=== PATIENT | male | born 1960 | race Caucasian/White ===

== ENCOUNTER → 2022-09-11 | Outpatient (CLI) | payer MEDICARE, MEDICAID ==
[~2022-09-11] VITALS: Ht 182.9 cm; Wt 108.0 kg
[~2022-09-11] MED LIST: CYMBALTA 60MG60 MG PO; MS CONTIN 660 MG/TAB PO; NEURONTIN600 MG/TAB PO; PERCOCET 325 MG1 TAB PO; TENORMIN 5050 MG/TAB PO; ZESTRIL40 MG PO
[2022-09-11 13:02] VITALS: BP 173/87; PULSE 79; TEMP 98.5
[2022-09-11 14:20] VITALS: BP 157/89; PULSE 85
== END ==
LOC: COL.RAD 12:39
DX: M54.50 Low back pain, unspecified (principal)
CPT/HCPCS: J3301